=== PATIENT | male | born 1975 | race Caucasian/White ===

== ENCOUNTER 2019-07-23 16:42 | Emergency (ER) | payer SELFPAY ==
[2019-07-23] MEDS ORDERED: NORMAL SALINE 1000 ML 2,100 ML IV ONE (17:10)
--- NOTE | 2019-07-23 17:59 | ER Document Report ---
ED Medical Screen (RME) - General Chief Complaint: Dizziness Stated Complaint: POSSIBLE SYNCOPE Time Seen by Provider: 07/23/19 17:10 Mode of Arrival: Ambulatory Information source: Patient Notes: 44-year-old male patient presents emergency department chief complaint of episode of near syncope, dizziness and diaphoresis. Patient does report a history of OK with 2 stent placements. Patient reports that he did not have any chest pain although he had sudden onset shortness of breath. Patient reports this was all just prior to arrival to the emergency department. He was hypotensive upon EMS arrival with a blood pressure of 80/62. He is feeling improved after EMS administered 1 L of IV fluids. Patient is alert, oriented, nontoxic in appearance. His vital signs are within normal limits. I have greeted and performed a rapid initial assessment of this patient. A comprehensive ED assessment and evaluation of the patient, analysis of test results and completion of the medical decision making process will be conducted by additional ED providers. I have specifically instructed the patient or family members with the patient to immediately return to any nursing staff should anything change in the patient's condition or with their chief complaint. TRAVEL OUTSIDE OF THE [place] IN LAST 30 DAYS: No - Related Data Allergies/Adverse Reactions: Penicillins Allergy (Verified 07/23/19 17:41) Past Medical History - Social History Chew tobacco use (# tins/day): No Frequency of alcohol use: Occasional Drug Abuse: None Physical Exam - Vital signs Vitals: Temp Pulse Resp BP Pulse Ox 98.3 F 59 L 18 114/73 100 07/23/19 16:52 07/23/19 16:52 07/23/19 16:52 07/23/19 16:52 07/23/19 16:52 Course - Vital Signs Vital signs: Temp Pulse Resp BP Pulse Ox 98.3 F 59 L 18 114/73 100 07/23/19 16:52 07/23/19 16:52 07/23/19 16:52 07/23/19 16:52 07/23/19 16:52
--- NOTE | 2019-07-23 18:15 | RADIOLOGY REPORT (SQ) ---
EXAM DESCRIPTION: CHEST 2 VIEWS COMPLETED DATE/TIME: 07/23/2019 6:07 pm REASON FOR STUDY: NEAR SYNCOPE COMPARISON: 02/25/2016 TECHNIQUE: Frontal and lateral radiographic views of the chest acquired. NUMBER OF VIEWS: Two view. LIMITATIONS: None. FINDINGS: LUNGS AND PLEURA: No pneumothorax. No consolidation or pleural effusion. MEDIASTINUM AND HILAR STRUCTURES: Stable. HEART AND VASCULAR STRUCTURES: Stable. BONES: No acute findings. HARDWARE: None in the chest. OTHER: No other significant finding. IMPRESSION: NO ACUTE FINDINGS. TECHNICAL DOCUMENTATION: JOB ID: [id number] [place]-72 2010 [employer]- All Rights Reserved Reading location - IP/workstation name: [facility]
[2019-07-23 19:12] LABS: ABSOLUTE BASOPHILS # (AUTO) 0.1 10^3/uL (0.0-0.2); ABSOLUTE EOSINOPHILS # (AUTO) 0.1 10^3/uL (0.0-0.6); ABSOLUTE LYMPHOCYTES (AUTO) 2.1 10^3/uL (0.5-4.7); ABSOLUTE MONOCYTES (AUTO) 0.8 10^3/uL (0.1-1.4); ABSOLUTE NEUT (AUTO) 10.5 10^3/uL (1.7-8.2); BASOPHILS % (AUTO) 0.5 % (0-2); EOSINOPHILS % (AUTO) 0.8 % (0-6); HEMATOCRIT 43.7 % (37.9-51.0); HEMOGLOBIN 15.1 g/dL (13.5-17.0); LYMPHOCYTES % (AUTO) 15.8 % (13-45); MEAN CORPUSCULAR HGB CONC 34.4 g/dL (32.0-36.0); MEAN CORPUSCULAR VOLUME 93 fl (80-97); MONOCYTES % (AUTO) 5.6 % (3-13); PLATELET COUNT 250 10^3/uL (150-450); RED BLOOD COUNT 4.71 10^6/uL (4.35-5.55); RED CELL DISTRIBUTION WIDTH 13.1 % (11.5-14.0); SEGMENTED NEUTROPHILS % (AUTO) 77.3 % (42-78); TOTAL CELLS COUNTED % (AUTO) 100 %; WHITE BLOOD COUNT 13.5 10^3/uL (4.0-10.5)
[2019-07-23 19:30] LABS: ALBUMIN 4.2 g/dL (3.5-5.0); ALKALINE PHOSPHATASE 47 U/L (38-126); ANION GAP 8 (5-19); ASPARTATE AMINO TRANSFERASE 28 U/L (17-59); BILIRUBIN,DIRECT 0.1 mg/dL (0.0-0.4); BILIRUBIN,TOTAL 0.7 mg/dL (0.2-1.3); BLOOD UREA NITROGEN 16 mg/dL (7-20); CALCIUM 9.6 mg/dL (8.4-10.2); CARBON DIOXIDE 30 mmol/L (22-30); CHLORIDE 102 mmol/L (98-107); GLUCOSE 76 mg/dL (75-110); POTASSIUM 4.7 mmol/L (3.6-5.0); TOTAL PROTEIN 7.2 g/dL (6.3-8.2)
--- NOTE | 2019-07-23 20:29 | EKG REPORT ---
SEVERITY:- BORDERLINE ECG - SINUS TACHYCARDIA LOW VOLTAGE IN FRONTAL LEADS BORDERLINE T ABNORMALITIES, ANT-LAT LEADS : Confirmed by: Mc Joaquin MD 23-Jul-2019 20:29:09
--- NOTE | 2019-07-23 21:11 | ER Document Report ---
ED General - General Chief Complaint: Dizziness Stated Complaint: POSSIBLE SYNCOPE Time Seen by Provider: 07/23/19 17:10 Primary Care Provider: NANCY CALERO MD [Primary Care Provider] - Follow up as needed Mode of Arrival: Ambulatory Information source: Patient TRAVEL OUTSIDE OF THE [place] IN LAST 30 DAYS: No - HPI Onset: Other - patient had transient slurred speech around noon and then pre- syncope symptoms about an hour later (dizzines, sweating, hypotension) Onset/Duration: Sudden Quality of pain: No pain Severity: Moderate Pain Level: Denies Associated symptoms: Shortness of breath, Sweating, Weakness, Other - Dizziness. denies: Headache Exacerbated by: Other - getting up too quickly Relieved by: Denies Similar symptoms previously: No Recently seen / treated by doctor: No Notes: 44 year old male with a history of CAD s/p 2 stents, HTN, HLD, Elevated Triglycerides here for a transient brief episode of slurred speech and then a pre-syncopal event about an hour later. The patient was talking on the phone around noon when he had a brief episode of slurred speech (patient has never had this happen). About an hour or 2 later the patient's father became sick so EMS was called for his father. The patient was watching his father get taken to the hospital by EMS and he got light headed, dizzy, sweaty, and felt like he was going to pass out. EMS noted the patient was hypotensive and they started him on IV Fluids. The patient denies recent fevers, chills, sweats, nausea, vomiting, urinary symptoms, alcohol or drug use. The patient has had brief pre-syncopal events when getting up too quickly in the past but he has never felt like he did today. The patient received a liter for fluids from EMS and felt much better on ER arrival. - Related Data Allergies/Adverse Reactions: Penicillins Allergy (Verified 07/23/19 17:41) Past Medical History - General Information source: Patient - Social History Smoking Status: Current Every Day Smoker Chew tobacco use (# tins/day): No Frequency of alcohol use: Occasional Drug Abuse: None Family History: CAD Patient has suicidal ideation: No Patient has homicidal ideation: No - Past Medical History Cardiac Medical History: Reports: Hx Coronary Artery Disease, Hx Hypercholesterolemia, Hx Hypertension Pulmonary Medical History: Reports: None EENT Medical History: Reports: None Neurological Medical History: Reports: None Endocrine Medical History: Reports: None Renal/ Medical History: Reports: None Malignancy Medical History: Reports None GI Medical History: Reports: None Musculoskeletal Medical History: Reports None Skin Medical History: Reports None Psychiatric Medical History: Reports: None Past Surgical History: Reports: Hx Cardiac Catheterization Review of Systems - Review of Systems Constitutional: No symptoms reported EENT: No symptoms reported Cardiovascular: Dizziness, Lightheaded, Other - pre-syncope Respiratory: Short of breath Gastrointestinal: No symptoms reported Genitourinary: No symptoms reported Male Genitourinary: No symptoms reported Musculoskeletal: No symptoms reported Skin: No symptoms reported Hematologic/Lymphatic: No symptoms reported Neurological/Psychological: Other - transient slurred speech -: Yes All other systems reviewed and negative Physical Exam - Vital signs Vitals: Temp Pulse Resp BP Pulse Ox 98.3 F 59 L 18 114/73 100 07/23/19 16:52 07/23/19 16:52 07/23/19 16:52 07/23/19 16:52 07/23/19 16:52 - Notes Notes: GENERAL: Well-appearing, well-nourished and in no acute distress. HEAD: Atraumatic, normocephalic. EYES: Pupils equal round and reactive to light, extraocular movements intact, sclera anicteric, conjunctiva are normal. ENT: Nares patent, oropharynx clear without exudates. Moist mucous membranes. NECK: Normal range of motion, supple without lymphadenopathy or JVD. LUNGS: Breath sounds clear to auscultation bilaterally and equal. No wheezes rales or rhonchi. HEART: Regular rate and rhythm without murmurs, rubs or gallops. ABDOMEN: Soft, nontender, normoactive bowel sounds. No guarding, no rebound. No masses appreciated. EXTREMITIES: Normal range of motion, no pitting or edema. No clubbing or cyanosis. NEUROLOGICAL: Cranial nerves II through XII grossly intact. Normal speech, normal gait. PSYCH: Normal mood, normal affect. SKIN: Warm, Dry, normal turgor, no rashes or lesions noted. Course - Re-evaluation Re-evalutation: 07/23/19 22:38 The patient had a brief episode of slurred speech around noon and then a pre- syncopal event about 1-2 hours later. The patient had an LA 2 years ago and he still smokes but he is only 44 years old. Patient never had a true syncopal event. Patient offered admission but he preferred to follow up with his PCP which I think is safe since he is relatively low risk for a serious cause of syncope or a CVA. Patients EKG and CT Head are unremarkable. Patient's blood work was unremarkable except for a slightly elevated WBC but patient is not having infectious symptoms. - Vital Signs Vital signs: Temp Pulse Resp BP Pulse Ox 98.3 F 63 18 123/64 100 07/23/19 16:52 07/23/19 21:30 07/23/19 16:52 07/23/19 21:30 07/23/19 16:52 - Laboratory Result Diagrams: 07/23/19 18:38 07/23/19 18:38 Laboratory results interpreted by me: 07/23/19 18:38 WBC 13.5 H Absolute Neuts (auto) 10.5 H - Diagnostic Test Radiology reviewed: Image reviewed, Reports reviewed - EKG Interpretation by Nv EKG shows normal: Sinus rhythm, [place], Intervals, QRS Complexes Rate: Tachycardia Rhythm: NSR Discharge - Discharge Clinical Impression: Pre-syncope, Dehydration Condition: Stable Disposition: HOME, SELF-CARE Instructions: Dizziness ([facility]), Near Syncopal Episode ([facility]) Additional Instructions: Follow up with your primary care doctor and tell him/her you were in the ER for transient slurred speech and a near syncopal (passing out) event. Drink plenty of fluids in the days to come. Tell your doctor you had blood work including a set of Troponins, a CBC, CMP, you had a CT of your head, and you had an EKG all which were within normal limits except a slightly elevated WBC Count. Referrals: NANCY CALERO MD [Primary Care Provider] - Follow up as needed
--- NOTE | 2019-07-23 21:57 | RADIOLOGY REPORT (SQ) ---
EXAM DESCRIPTION: CT HEAD WITHOUT IV CONTRAST COMPLETED DATE/TME: 07/23/2019 21:11 CLINICAL HISTORY: 44 years, Male, eval for stroke/TIA. transient slurred speech COMPARISON: None. TECHNIQUE: Images stored on PACS. All CT scanners at this facility use dose modulation, iterative reconstruction, and/or weight based dosing when appropriate to reduce radiation dose to as low as reasonably achievable (ALARA). [facility]: Dose Right [facility]: CareDose [facility]: Dose Right [facility]: Teradose 4D [facility]: [employer] LIMITATIONS: None. FINDINGS: Brenner-white differentiation is normal. Ventricles and axis spaces are within normal limits, for age. No evidence of mass lesion, positive mass effect. No evidence of acute intracranial hemorrhage. Orbits and eyeballs are unremarkable. Mastoid air cells are clear. Visualized paranasal sinuses are clear. Poor dentition IMPRESSION: No acute intracranial process is identified. The cause of the patient's presenting symptom is not identified on this examination. Speech disturbance TECHNICAL DOCUMENTATION: Quality ID # [id number]: Final reports with documentation of one or more dose reduction techniques (e.g., Automated exposure control, adjustment of the mA and/or kV according to patient size, use of iterative reconstruction technique) copyright 2011 [employer]- All Rights Reserved
[2019-07-23 23:31] VITALS: BP 118/71
== END 2019-07-23 23:31 | disposition home or self-care (01) ==
LOC: ER 16:42
DX: R42 Dizziness and giddiness (principal); E86.0 Dehydration; R47.81 Slurred speech; R06.02 Shortness of breath; R53.1 Weakness; R61 Generalized hyperhidrosis; I25.10 Atherosclerotic heart disease of native coronary artery without angina pectoris
CPT/HCPCS: 36415; 70450; 71046; 80053; 84484; 85025; 93005; 93010; 99285